=== PATIENT | male | born 1990 | race Caucasian/White ===

== ENCOUNTER 2017-05-07 01:21 | Emergency (ER) | payer SELFPAY ==
[~2017-05-07] VITALS: Ht 167.6 cm; Wt 88.0 kg
[2017-05-07 01:29] VITALS: BP 121/91
== END 2017-05-07 01:34 | disposition other institution (70) ==
LOC: ED 01:21
DX: R07.89 Other chest pain (principal); V43.92XA Unspecified car occupant injured in collision with other type car in traffic accident, initial encounter; Y93.89 Activity, other specified; Y99.8 Other external cause status; Y92.89 Other specified places as the place of occurrence of the external cause
CPT/HCPCS: Q0092

== ENCOUNTER 2017-05-07 01:21 | Emergency (ER) | payer OTHER | END 2017-05-07 01:34 | disposition other institution (70) | LOC: ED 01:21 | DX: Z02.89 Encounter for other administrative examinations (principal) ==